=== PATIENT | male | born 1975 | race African-American/Black ===

== ENCOUNTER 2018-06-09 08:54 | Emergency (ER) | payer BC, OTHER ==
--- NOTE | 2018-06-09 09:20 | ED ---
HPI Chest Pain - HPI Summary HPI Summary: Patient is a 42-year-old male with no significant PMH presenting to the ED with 3 days of feeling intermittent "heart palpitations and SOB." He denies this worse with exertion or better with rest. He denies any worsening symptoms during a specific time of day. He states he feels he has to catch his breath and needs to take deeper breaths than he normally would. He is also stating he is just "not myself." He denies any recent illness. He today is denying cough , congestion, throat pain and, rhinorrhea, chest discomfort or weakness. He is denying any GI symptoms. Denies any fevers, sweats, chills. He takes no medications, has no allergies and has never been diagnosed with anxiety. Patient has a smoking history, but denies this currently. Denies any alcohol use. Denies any drug use. - History of Current Complaint Chief Complaint: EDChestPainROMI Time Seen by Provider: 06/09/18 09:01 Hx Obtained From: Patient Onset/Duration: Started Days Ago Timing: Lasting Days Initial Severity: Moderate Current Severity: Moderate Pain Intensity: 0 Pain Scale Used: 0-10 Numeric Aggravating Factor(s): Nothing Alleviating Factor(s): Nothing Associated Signs and Symptoms: Positive: Shortness of Breath - Risk Factors Pulmonary Embolism Risk Factors: Negative TAD Risk Factors: Negative - Allergy/Home Medications Allergies/Adverse Reactions: Allergies Allergy/AdvReac Type Severity Reaction Status Date / Time No Known Allergies Allergy Verified 06/09/18 08:59 Home Medications: Home Medications NK [No Home Medications Reported] 06/09/18 [History Confirmed 06/09/18] PMH/Surg Hx/FS Hx/Imm Hx Previously Healthy: Yes Endocrine/Hematology History: Denies: Hx Diabetes Cardiovascular History: Denies: Hx Hypertension, Hx Pacemaker/ICD Sensory History: Denies: Hx Hearing Aid Psychiatric History: Denies: Hx Panic Disorder - Surgical History Surgery Procedure, Year, and Place: LT KNEE SURGERY - Immunization History Hx Pertussis Vaccination: No Immunizations Up to Date: Yes Infectious Disease History: No Infectious Disease History: Denies: Traveled Outside the [place] in Last 30 Days - Social History Occupation: Employed Full-time Lives: Dormitory/Roommates Alcohol Use: Occasionally Hx Substance Use: No Substance Use Type: Reports: None Hx Tobacco Use: Yes Smoking Status (MU): Former Smoker Review of Systems Negative: Fever, Chills, Fatigue, Skin Diaphoresis Positive: Palpitations. Negative: Chest Pain Positive: Shortness Of Breath. Negative: Cough Negative: Abdominal Pain, Vomiting, Diarrhea, Nausea Genitourinary: Negative Positive: no symptoms reported, see HPI Negative: Arthralgia Negative: Rash, Bruising Neurological: Negative All Other Systems Reviewed And Are Negative: Yes Physical Exam Triage Information Reviewed: Yes Vital Signs On Initial Exam: Initial Vitals Temp Pulse Resp BP Pulse Ox 97.8 F 67 16 137/84 97 06/09/18 08:57 06/09/18 08:57 06/09/18 08:57 06/09/18 08:57 06/09/18 08:57 Vital Signs Reviewed: Yes Appearance: Positive: Well-Appearing, Well-Nourished Skin: Positive: Warm, Skin Color Reflects Adequate Perfusion Head/Face: Positive: Normal Head/Face Inspection Eyes: Positive: EOMI, SARA, Conjunctiva Clear Neck: Positive: Supple, No Lymphadenopathy Respiratory/Lung Sounds: Positive: Clear to Auscultation, Breath Sounds Present Cardiovascular: Positive: RRR, Pulses are Symmetrical in both Upper and Lower Extremities. Negative: Tachycardia, Leg Edema Left, Leg Edema Right Musculoskeletal: Positive: Normal, Strength/ROM Intact Neurological: Positive: Speech Normal Psychiatric: Positive: Normal, Affect/Mood Appropriate AVPU Assessment: Alert Diagnostics - Vital Signs Vital Signs Temp Pulse Resp BP Pulse Ox 06/09/18 09:09 70 06/09/18 08:57 97.8 F 67 16 137/84 97 - Laboratory Result Diagrams: 06/09/18 09:36 06/09/18 09:36 Lab Statement: Any lab studies that have been ordered have been reviewed, and results considered in the medical decision making process. Re-Evaluation - Re-Evaluation First Eval Change: Unchanged - patient is denying any symptoms on arrival to the ED Chest Pain Course/Dx - Course Course Of Treatment: On arrival, patient is appearing well and nontoxic. His vital signs are stable with a normal BP. He denies any significant PMH. He is stating intermittent SOB and feelings of heart palpitations over 3 days. Denies any personal or family history of cardiac problems. He takes no medications and states he is otherwise healthy. He denies any recent illness or recent sick contacts. EKG obtained which shows a rate of 73 with normal sinus rhythm. Troponin 0.00. Other labs are all WNL. Patient states he is still feeling intermittent "fluttering" but during times of fluttering, no changes were seen on cardiac monitoring. I have encouraged him to follow-up with cardiology. He continues to deny any chest pain. - Chest Pain Differential Diagnosis/HQI/PQRI: Acute NE, ACS, Angina, Aortic Aneurysm - Diagnoses Provider Diagnoses: Fluttering heart Discharge - Sign-Out/Discharge Documenting (check all that apply): Patient Departure - Discharge Plan Condition: Stable Disposition: HOME Referrals: Ronald Krueger MD [Medical Doctor] - No Primary Care Phys,NOPCP [Primary Care Provider] - Additional Instructions: Please follow-up with cardiology If you develop any worsening or changing symptoms, return to the ED immediately - Billing Disposition and Condition Condition: STABLE Disposition: Home
[2018-06-09 09:50] LABS: Hematocrit 46 % (42-52); Hemoglobin 15.2 g/dl (14.0-18.0); Mean Corpuscular HGB Conc 33 g/dl (31-36); Mean Corpuscular Hemoglobin 31 pg (27-31); Mean Corpuscular Volume 93 fL (80-94); Platelet Count 139 10^3/ul (150-450); Red Blood Count 4.95 10^6/ul (4.00-5.40); Red Cell Distribution Width 13 % (10.5-15); White Blood Count 5.2 10^3/ul (3.5-10.8)
[2018-06-09 10:08] LABS: ABS Basophils 0 10^3/ul (0-0.2); ABS Eosinophils 0.1 10^3/ul (0-0.6); ABS Lymphocytes 2.4 10^3/ul (1.0-4.8); ABS Monocytes 0.5 10^3/ul (0-0.8); ABS Neutrophils 2.2 10^3/ul (1.5-7.7); ABS Nucleated RBC 0 10^3/ul; Eosinophil % 2.5 % (0-6); Lymphocyte % 45.2 % (25-47); Nucleated Red Blood Cells % 0.1
[2018-06-09 10:33] LABS: EGFR Non-African American 64.8 (>60)
[2018-06-09 11:18] VITALS: BP 124/84
== END 2018-06-09 11:10 | disposition home or self-care (01) ==
LOC: ED 08:54
DX: I49.8 Other specified cardiac arrhythmias (principal); Z87.891 Personal history of nicotine dependence
CPT/HCPCS: 36415; 71046; 80053; 82553; 83605; 83880; 84436; 84443; 84484; 85025; 93005; 99282